=== PATIENT | male | born 1970 | race Two or more races ===

== ENCOUNTER 2019-06-19 10:34 | Emergency (ER) | payer OTHER ==
--- NOTE | 2019-06-19 10:56 | ED Physician Chart ---
ED Chief Complaint/HPI - Patient Information Date Seen:: 06/19/19 Time Seen:: 10:40 Chief Complaint:: Right Ankle Pain History of Present Illness:: onset x one week of intermittent, dull, MS type right ankle pain after a twisting type injury; pt denies LOC, ALOC, AMS, H/As, neck pain, C/P, SOB, Abd.Pain, weakness, dizziness, paresthesias, visual or gait changes, vertigo, or urinary s/s; pt's last tetanus shot: < 5 years; UTD Allergies:: Allergies Allergy/AdvReac Type Severity Reaction Status Date / Time No Known Allergies Allergy Verified 06/19/19 10:47 Historian:: Patient Review:: Nurse's Note Reviewed, Old Chart Reviewed ED Review of Systems - Review of Systems General/Constitutional: No fever, No chills, No weight loss, No weakness, No diaphoresis, No edema, No loss of appetite Skin: No skin lesions, No rash, No bruising Head: No headache, No light-headedness Eyes: No loss of vision, No pain, No diplopia ENT: No earache, No nasal drainage, No sore throat, No tinnitus Neck: No neck pain, No swelling, No thyromegaly, No stiffness, No mass noted Cardio Vascular: No chest pain, No palpitations, No PND, No orthopnea, No edema Pulmonary: No SOB, No cough, No sputum, No wheezing GI: No nausea, No vomiting, No diarrhea, No pain, No melena, No hematochezia, No constipation, No hematemesis G/U: No dysuria, No frequency, No hematuria, No nacturia Musculoskeletal: No bone or joint pain, No back pain, No muscle pain Endocrine: No polyuria, No polydipsia Psychiatric: No prior psych history, No depression, No anxiety, No suicidal ideation, No homicidal ideation, No auditory hallucination, No visual hallucination Hematopoietic: No bruising, No lymphadenopathy Allergic/Immuno: No urticaria, No angioedema Neurological: No syncope, No focal symptoms, No weakness, No paresthesia, No headache, No seizure, No dizziness, No confusion, No vertigo ED Past Medical History - Past Medical History Obtainable: Yes Past Medical History: No significant medical hx Family History: None Social History: Non Smoker, No Alcohol, No Drug Use, Single Surgical History: None Psychiatricy History: None Medication: Reviewed Family Medical History - Family Member Mother History Unknown: Yes ED Physical Exam - Physical Examination General/Constitutional: Awake, Well-developed, well-nourished, Alert, No distress, GCS 15, Non-toxic appearing, Ambulatory Head: Atraumatic Eyes: Lids, conjuctiva normal, PERRL, EOMI Skin: Nl inspection, No rash, No skin lesions, No ecchymosis, Well hydrated, No lymphadenopathy ENMT: External ears, nose nl, TM canals nl, Nasal exam nl, Lips, teeth, gums nl , Oropharynx nl, Tonsils nl Neck: Nontender, Full ROM w/o pain, No JVD, No nuchal rigidity, No bruit, No mass, No stridor Respiratory: Nl effort/Exclusion, Clear to Auscultation, No Wheeze/Rhonchi/Rales Cardio Vascular: RRR, No murmur, gallop, rubs, NL S1 S2, Carotid/Femoral/Distal pulses equal bilaterally GI: No tenderness/rebounding/guarding, No organomegaly, No hernia, Normal BS's, Nondistended, No mass/bruits, No McBurney tenderness : No CVA tenderness Extremities: No tenderness or effusion, Full ROM, normal strength in all extremities, No edema, Normal digits & nails Other Extremities comments:: Right Ankle Swelling and Tenderness upon all PROMs; no loss of ROMs; full active ROMs of all joints; no cellulitis; no septic joinys; DTRs: 2+ bilaterally ; Gait: WNL; no FBs; Gait: WNL; no ligament instability; good motor, tendon, and sensory functions; good NV functions Neuro/Psych: Alert/oriented, DTR's symmetric, Normal sensory exam, Normal motor strength, Judgement/insight normal, Mood normal, Normal gait, No focal deficits Other Neuro/Psych comments:: no focal signs Misc: Normal back, No paraspinal tenderness ED Labs/Radiology/EKG Results - Radiology Results Comments:: X-Rays: Right Distal Fibula Fracture of Right Ankle ED Assessment - Procedures Informed Consent: Procedure/risk/benefits explained by MD: Yes Splint Care: Splint applied Post Procedure/Splint Exam: No Active Bleeding, Full Range of Motion, Neuro/ Vascular Exam Comments:: good NV functions ED Septic Shock - . Is Septic Shock (SBP<90, OR Lactate>4 mmol\L) present?: No ED Reassessment (Disposition) - Reassessment Reassessment:: pt is asymptomatic upon discharge Reassessment Condition:: Improved - Diagnosis Diagnosis:: Right Ankle Pain; Right Ankle Injury/Trauma; Right Distal Fibula Fracture; Right Ankle Fracture - Aftercare/Follow up Instructions Aftercare/Follow-Up Instructions:: Counseled pt regarding lab results/diagnosis & need follow up, Refer to Discharge Instructions, Counseled pt & family regarding lab results/diagnosis & need follow up - Patient Disposition Discharge/Transfer:: Home Condition at Disposition:: Stable, Improved (X-Rays Instructions; RTER prn if existing s/s reoccur and/or get worse and/or any other new s/s occur; ACIs given for all above Dx; Refer to Orthopedist/Herbicide Service Sales Representative [facility]; F/U with PMD in one day or prn; RTER prn if concerned)
--- NOTE | 2019-06-19 11:29 | Diagnostic Imaging Report ---
Right ankle 3 views Indication: Trauma Comparison: Right foot x-rays the same day Findings: There is 3 mm ossicle, age-indeterminate avulsion fracture of the inferior aspect of the lateral malleolus. Mild surrounding soft tissue swelling is noted in this region. Mild degenerative changes are noted. No dislocation. Impression: 3 mm ossicle likely age-indeterminate avulsion fracture along the inferior aspect of the lateral malleolus. Mild surrounding soft tissue swelling is noted in this region. Please correlate clinically. In the setting of trauma, if clinical symptoms persist and there is continued concern for an occult fracture, follow up exams in 5-7 days is suggested.
--- NOTE | 2019-06-19 11:30 | Diagnostic Imaging Report ---
Right foot 3 views Indication: Trauma Comparison: Right ankle x-rays the same day Findings: Mild to moderate degenerative changes are noted. There may have been trauma or previous erosions seen involving the medial aspect of the first distal phalanx. Otherwise no evidence of an acute fracture. Impression: There may have been trauma or previous erosions seen involving the medial aspect of the first distal phalanx. Please correlate with clinical findings. Otherwise no evidence of an acute fracture. Degenerative changes. In the setting of trauma, if clinical symptoms persist and there is continued concern for an occult fracture, follow up exams in 5-7 days is suggested.
== END 2019-06-19 11:18 | disposition home or self-care (01) ==
LOC: ER 10:34
DX: S82.831A Other fracture of upper and lower end of right fibula, initial encounter for closed fracture (principal); X50.1XXA Overexertion from prolonged static or awkward postures, initial encounter; Y93.89 Activity, other specified; Y92.89 Other specified places as the place of occurrence of the external cause; Y99.8 Other external cause status
CPT/HCPCS: 73610-RT-TC; 73620-TC-RT; Z7502